=== PATIENT | male | born 1945 | race Caucasian/White ===

== ENCOUNTER 2018-01-28 17:51 | Emergency (ER) | payer OTHER ==
[2018-01-28 18:54] LABS: Absolute Lymphocytes (CBC) 1.5 K/uL (0.7-4.9); Absolute Monocytes 0.6 K/uL (0.1-1.3); Absolute Neutrophil 2.2 K/uL (1.8-8.0); Basophils % 0.6 % (0-1.3); Eosinophils % 3.1 % (0-4.4); Hematocrit 31.1 % (39.6-49.0); Lymphocytes % 33.4 % (15.3-44.8); MCH 33.3 pg (27.0-35.0); MCV 94.5 fL (80-100); MPV 8.2 fL (7.6-11.3); Monocytes % 12.6 % (3.3-12.3); RBC Red Blood Cell Count 3.29 M/uL (4.33-5.43)
[2018-01-28 18:59] LABS: Protime INR 0.97
[2018-01-28 19:15] LABS: Magnesium 2.2 mg/dL (1.8-2.4)
--- NOTE | 2018-01-28 19:21 | ER ---
Nurse's Notes [facility] Name: Michael Cruz Age: 72 yrs Sex: Male : 1945 Arrival Date: 01/28/2018 Time: 17:55 Bed 15 Private MD: Diagnosis: Person with feared health complaint in whom no diagnosis is made Presentation: 01/28 18:04 Presenting complaint: Patient states: [facility] after reading of aj 8.7 yesterday. Transition of care: patient was not received from another setting of care. Onset of symptoms was January 28, 2018. Risk Assessment: Do you want to hurt yourself or someone else? Patient reports no desire to harm self or others. Initial Sepsis Screen: Does the patient meet any 2 criteria? No. Patient's initial sepsis screen is negative. Does the patient have a suspected source of infection? No. Patient's initial sepsis screen is negative. Care prior to arrival: None. 18:04 Method Of Arrival: Ambulatory aj 18:04 Acuity: DONN 3 aj Triage Assessment: 18:06 General: Appears in no apparent distress. comfortable, Behavior is calm, cooperative, aj appropriate for age. Pain: Denies pain. Neuro: Level of Consciousness is awake, alert, obeys commands, Oriented to person, place, time, situation, Appropriate for age. Respiratory: Airway is patent Respiratory effort is even, unlabored, Respiratory pattern is regular, symmetrical. Derm: Skin is intact, is healthy with good turgor, Skin is pink, warm \T\ dry. normal. Historical: - Allergies: 18:06 No Known Allergies; aj - Home Meds: 19:04 atorvastatin 20 mg Oral tab 1 tab once daily [Active]; benztropine 1 mg Oral tab 1 tab ph 2 times per day [Active]; diclofenac sodium 50 mg oral TbEC 1 tab 2 times per day [Active]; divalproex 500 mg Oral Tb24 1 tab once daily [Active]; furosemide 40 mg Oral tab 1 tab 2 times per day [Active]; guaifenesin 100 mg/5 mL Oral liqd [Active]; hydralazine 25 mg Oral tab 1 tab 2 times per day [Active]; lisinopril 40 mg Oral tab 1 tab once daily [Active]; loratadine 10 mg Oral TbDL 1 tab once daily [Active]; metoprolol tartrate 100 mg Oral tab 1 tab 2 times per day [Active]; omeprazole 20 mg Oral cpDR 1 cap once daily [Active]; trazodone 50 mg Oral tab 1 tab nightly [Active]; spironolactone 25 mg Oral tab 1 tab once daily [Active]; - PMHx: 18:06 brain injury; Hyperlipidemia; Hypertension; Schizophrenia; aj - Immunization history:: Adult Immunizations up to date. - Social history:: Smoking status: Patient/guardian denies using tobacco. - Ebola Screening: : Patient negative for fever greater than or equal to 101.5 degrees Fahrenheit, and additional compatible Ebola Virus Disease symptoms Patient denies exposure to infectious person Patient denies travel to an Ebola-affected area in the 21 days before illness onset No symptoms or risks identified at this time. Screenin:58 Abuse screen: Denies threats or abuse. Denies injuries from another. Nutritional ph screening: On. Tuberculosis screening: No symptoms or risk factors identified. Fall Risk None identified. Assessment: 18:30 General: Appears in no apparent distress. comfortable, well groomed, Behavior is calm, ph cooperative, appropriate for age, Denies fever, feeling ill. Pain: Denies pain. Neuro: Level of Consciousness is awake, alert, obeys commands, Oriented to person, place, time, situation, Denies weakness blurred vision dizziness, headache. Cardiovascular: Denies chest pain, palpitations, shortness of breath, Capillary refill < 3 seconds Patient's skin is warm and dry. Rhythm is sinus rhythm. Respiratory: Airway is patent Respiratory effort is even, unlabored, Respiratory pattern is regular, symmetrical. GI: No signs and/or symptoms were reported involving the gastrointestinal system. Derm: Skin is intact, is healthy with good turgor, Skin is pink, warm \T\ dry. Musculoskeletal: Circulation, motion, and sensation intact. Range of motion: intact in all extremities. 19:28 Reassessment: Patient appears in no apparent distress at this time. Patient is alert, aa1 oriented x 3, equal unlabored respirations, skin warm/dry/pink. Discussed d/c \T\ f/u instructions with pt \T\ family; denies questions or concerns at this time Patient denies pain at this time. Vital Signs: 18:06 BP 136 / 67; Pulse 67; Resp 16; Temp 97.5; Pulse Ox 95% on R/A; Weight 93.44 kg; Height aj 5 ft. 10 in. (177.80 cm); 19:28 BP 133 / 70; Pulse 64; Resp 18; Pulse Ox 96% on R/A; Pain 0/10; aa1 18:06 Body Mass Index 29.56 (93.44 kg, 177.80 cm) ED Course: 17:55 Patient arrived in ED. rg4 18:05 Triage completed. aj 18:05 Kaley Herrera, RN is Primary Nurse. 18:06 Arm band placed on left wrist. Patient placed in an exam room. aj 18:08 Nichelle Jackson F[facility]-C [facility]. kb 18:08 Farhad Dye MD is Attending Physician. kb 18:40 Initial lab(s) drawn, by me, sent to lab. Inserted saline lock: 20 gauge in right ph antecubital area, using aseptic technique. Blood collected. 18:58 Patient has correct armband on for positive identification. Placed in gown. Bed in low ph position. Call light in reach. Side rails up X 1. awake overnight monitor on. Pulse ox on. NIBP on. Pillow given. 19:28 No provider procedures requiring assistance completed. IV discontinued, intact, aa1 bleeding controlled, No redness/swelling at site. Pressure dressing applied. Administered Medications: No medications were administered Outcome: 19:20 Discharge ordered by . kb 19:28 Discharged to home ambulatory, with family. aa1 19:28 Condition: good 19:28 Discharge instructions given to patient, family, Instructed on discharge instructions, follow up and referral plans. Demonstrated understanding of instructions, follow-up care. 19:30 Patient left the ED. aa1 Signatures: Nichelle Jackson FNP-C FNP-Ckb Kern, Alissa, RN RN aa1 Erika Pearson RN RN Kaley Herrera, RN PEYTON [place] rg4
--- NOTE | 2018-01-28 19:21 | EDPHYS ---
Physician Documentation [facility] Name: Michael Cruz Age: 72 yrs Sex: Male : 1945 Arrival Date: 01/28/2018 Time: 17:55 Bed 15 Private MD: ED Physician Farhad Dey HPI: 01/28 18:23 This 72 yrs old Male presents to ER via Ambulatory with complaints of kb Abnormal Lab Results. 18:34 Pt had routine lab work done at the CT this morning, was called at 1730 and told he kb needed to come to the ER for a potassium of 8.7. Onset: The symptoms/episode began/occurred today. Severity of symptoms: At their worst the symptoms were moderate in the emergency department the symptoms are unchanged. The patient has not experienced similar symptoms in the past. The patient has been recently seen by a physician:. 18:35 Pt denies any symptoms, including chest pain, palpitations, shortness of breath.. kb Historical: - Allergies: 18:06 No Known Allergies; aj - Home Meds: 19:04 atorvastatin 20 mg Oral tab 1 tab once daily [Active]; benztropine 1 mg Oral tab 1 tab ph 2 times per day [Active]; diclofenac sodium 50 mg oral TbEC 1 tab 2 times per day [Active]; divalproex 500 mg Oral Tb24 1 tab once daily [Active]; furosemide 40 mg Oral tab 1 tab 2 times per day [Active]; guaifenesin 100 mg/5 mL Oral liqd [Active]; hydralazine 25 mg Oral tab 1 tab 2 times per day [Active]; lisinopril 40 mg Oral tab 1 tab once daily [Active]; loratadine 10 mg Oral TbDL 1 tab once daily [Active]; metoprolol tartrate 100 mg Oral tab 1 tab 2 times per day [Active]; omeprazole 20 mg Oral cpDR 1 cap once daily [Active]; trazodone 50 mg Oral tab 1 tab nightly [Active]; spironolactone 25 mg Oral tab 1 tab once daily [Active]; - PMHx: 18:06 brain injury; Hyperlipidemia; Hypertension; Schizophrenia; aj - Immunization history:: Adult Immunizations up to date. - Social history:: Smoking status: Patient/guardian denies using tobacco. - Ebola Screening: : Patient negative for fever greater than or equal to 101.5 degrees Fahrenheit, and additional compatible Ebola Virus Disease symptoms Patient denies exposure to infectious person Patient denies travel to an Ebola-affected area in the 21 days before illness onset No symptoms or risks identified at this time. ROS: 18:24 Constitutional: Negative for fever, chills, and weight loss, ENT: Negative for injury, kb pain, and discharge, Neck: Negative for injury, pain, and swelling, Cardiovascular: Negative for chest pain, palpitations, and edema, Respiratory: Negative for shortness of breath, cough, wheezing, and pleuritic chest pain, Abdomen/GI: Negative for abdominal pain, nausea, vomiting, diarrhea, and constipation, Back: Negative for injury and pain, : Negative for injury, bleeding, discharge, and swelling, MS/Extremity: Negative for injury and deformity, Skin: Negative for injury, rash, and discoloration, Neuro: Negative for headache, weakness, numbness, tingling, and seizure. Exam: 18:24 Constitutional: This is a well developed, well nourished patient who is awake, alert, kb and in no acute distress. Head/Face: Normocephalic, atraumatic. ENT: Nares patent. No nasal discharge, no septal abnormalities noted. Tympanic membranes are normal and external auditory canals are clear. Oropharynx with no redness, swelling, or masses, exudates, or evidence of obstruction, uvula midline. Mucous membranes moist. Neck: Trachea midline, no thyromegaly or masses palpated, and no cervical lymphadenopathy. Supple, full range of motion without nuchal rigidity, or vertebral point tenderness. No Meningismus. Chest/axilla: Normal chest wall appearance and motion. Nontender with no deformity. No lesions are appreciated. Cardiovascular: Regular rate and rhythm with a normal S1 and S2. No gallops, murmurs, or rubs. Normal PMI, no JVD. No pulse deficits. Respiratory: Lungs have equal breath sounds bilaterally, clear to auscultation and percussion. No rales, rhonchi or wheezes noted. No increased work of breathing, no retractions or nasal flaring. Abdomen/GI: Soft, non-tender, with normal bowel sounds. No distension or tympany. No guarding or rebound. No evidence of tenderness throughout. Skin: Warm, dry with normal turgor. Normal color with no rashes, no lesions, and no evidence of cellulitis. MS/ Extremity: Pulses equal, no cyanosis. Neurovascular intact. Full, normal range of motion. Neuro: Awake and alert, GCS 15, oriented to person, place, time, and situation. Cranial nerves II-XII grossly intact. Motor strength 5/5 in all extremities. Sensory grossly intact. Cerebellar exam normal. Normal gait. Vital Signs: 18:06 BP 136 / 67; Pulse 67; Resp 16; Temp 97.5; Pulse Ox 95% on R/A; Weight 93.44 kg; Height aj 5 ft. 10 in. (177.80 cm); 19:28 BP 133 / 70; Pulse 64; Resp 18; Pulse Ox 96% on R/A; Pain 0/10; aa1 18:06 Body Mass Index 29.56 (93.44 kg, 177.80 cm) aj MDM: 18:15 Patient medically screened. kb 18:24 Data reviewed: vital signs, nurses notes. Data interpreted: Pulse oximetry: on room air kb is 95 %. Interpretation: normal. 19:19 Counseling: I had a detailed discussion with the patient and/or guardian regarding: the kb historical points, exam findings, and any diagnostic results supporting the discharge/admit diagnosis, lab results, the need for outpatient follow up, a family practitioner, to return to the emergency department if symptoms worsen or persist or if there are any questions or concerns that arise at home. 01/28 18:14 Order name: Basic Metabolic Panel; Complete Time: 19:17 kb 01/28 18:14 Order name: CBC with Diff; Complete Time: 19:10 kb 01/28 18:14 Order name: Ckmb; Complete Time: 19:17 kb 01/28 18:14 Order name: CPK; Complete Time: 19:17 kb 01/28 18:14 Order name: Magnesium; Complete Time: 19:17 kb 01/28 18:14 Order name: NT PRO-BNP; Complete Time: 19:17 kb 01/28 18:14 Order name: PT-INR; Complete Time: 19:10 kb 01/28 18:14 Order name: Ptt, Activated; Complete Time: 19:10 kb 01/28 18:14 Order name: Troponin (emerg Dept Use Only); Complete Time: 19:14 kb 01/28 18:14 Order name: EKG; Complete Time: 18:15 kb 01/28 18:14 Order name: Cardiac monitoring; Complete Time: 19:05 kb 01/28 18:14 Order name: EKG - Nurse/Tech; Complete Time: 19:05 kb 01/28 18:14 Order name: IV Saline Lock; Complete Time: 19:05 kb 01/28 18:14 Order name: Labs collected and sent; Complete Time: 19:05 kb 01/28 18:14 Order name: O2 Per Protocol; Complete Time: 19:05 kb 01/28 18:14 Order name: O2 Sat Monitoring; Complete Time: 19:05 kb Administered Medications: No medications were administered Disposition: 01/28/18 19:20 Discharged to Home. Impression: Person with feared health complaint in whom no diagnosis is made. - Condition is Stable. - Medication Reconciliation Form, Thank You Letter, Antibiotic Education, Prescription Opioid Use form. - Follow up: Emergency Department; When: As needed; Reason: Worsening of condition. Follow up: Private Physician; When: 2 - 3 days; Reason: Recheck today's complaints, Continuance of care, Re-evaluation by your physician. Addendum: 02/12/2018 10:54 Co-signature as Attending Physician, Farhad Dye MD I agree with the assessment and k dr plan of care. Signatures: Dispatcher [employer] EDMS Nichelle Jackson, GAS APPLIANCE SERVICER-C GAS APPLIANCE SERVICER-Ckb Heaven Lau RN RN aa1 Erika Pearson RN RN aj Rittger, Kevin, MD MD [facility] Kaley Herrera RN RN ph Corrections: (The following items were deleted from the chart) 01/28 18:34 18:24 Constitutional: Negative for fever, chills, and weight loss, ENT: Negative for kb injury, pain, and discharge, Neck: Negative for injury, pain, and swelling, Cardiovascular: Negative for chest pain, palpitations, and edema, Respiratory: Negative for shortness of breath, cough, wheezing, and pleuritic chest pain, Abdomen/GI: Negative for abdominal pain, nausea, vomiting, diarrhea, and constipation, MS/Extremity: Negative for injury and deformity, Skin: Negative for injury, rash, and discoloration, Neuro: Negative for headache, weakness, numbness, tingling, and seizure, kb 19:30 19:20 01/28/2018 19:20 Discharged to Home. Impression: Person with feared health aa1 complaint in whom no diagnosis is made. Condition is Stable. Forms are Medication Reconciliation Form, Thank You Letter, Antibiotic Education, Prescription Opioid Use. Follow up: Emergency Department; When: As needed; Reason: Worsening of condition. Follow up: Private Physician; When: 2 - 3 days; Reason: Recheck today's complaints, Continuance of care, Re-evaluation by your physician. kb
--- NOTE | 2018-01-29 09:04 | EKG ---
Test Date: 2018-01-28 Test Time: 18:19:38 Side Splitter: ROLAND MEASUREMENT RESULTS: Intervals: Rate: 63 NE: 212 QRSD: 144 QT: 458 QTc: 468 [place]: P: 40 NE: 212 QRS: -51 T: 27 INTERPRETIVE STATEMENTS: Sinus rhythm with 1st degree AV block Right bundle branch block Left anterior fascicular block Bifascicular block Abnormal ECG No previous ECG available for comparison Electronically Signed On 01-29-18 09:03:17 CDT by Harjit Ayala
== END 2018-01-28 19:30 | disposition home or self-care (01) ==
LOC: ER 17:51
DX: Z71.1 Person with feared health complaint in whom no diagnosis is made (principal); I10 Essential (primary) hypertension; E78.5 Hyperlipidemia, unspecified; F20.9 Schizophrenia, unspecified
CPT/HCPCS: 36415; 80048; 82550; 82553; 83735; 83880; 84484; 85025; 85610; 85730; 93005; 99284

== ENCOUNTER 2024-01-17 17:29 | Emergency (ER) | payer OTHER ==
--- OUTSIDE RECORDS SUMMARY | 2024-01-17 17:32 | XMS REPORT | Continuity of Care Document ---
Author Name Unknown Address [address] [place] [address] thconnect Address [address] [place] [address] Care Team Providers Care Mobile Practice Lead Name Role Phone Unavailable Unavailable Unavailable Encounters Start Date/Time End Date/Time Encounter Type Admission Type Attending Clinicians Care Facility Care Department Encounter ID Source 2023-12-03 07:24:00 Outpatient [facility] [id number] [facility] 2022-07-08 11:27:01 Outpatient [facility] [id number] [facility]
[2024-01-17] MEDS ORDERED: KETOROLAC 30 MG/ML INJ ONE (18:25)
[2024-01-17] MEDS ORDERED: ONDANSETRON 4 MG/2 ML VIAL ONE (18:27)
[2024-01-17] MEDS ORDERED: MORPHINE 4 MG/ML SYR ONE (18:28)
[2024-01-17 18:55] LABS: Absolute Lymphocytes (CBC) 0.7 K/uL (0.7-4.9); Absolute Monocytes 1.1 K/uL (0.1-1.3); Basophils % 0.3 % (0-1.3); Hematocrit 28.9 % (39.6-49.0); Hemoglobin 9.8 g/dL (13.6-17.9); Lymphocytes % 8.5 % (15.3-44.8); MCH 31.2 pg (27.0-35.0); MCV 91.8 fL (80-100); Monocytes % 14.4 % (3.3-12.3); Neutrophils % 76.8 % (41.7-73.7); Nucleated Red Blood Cells % 0.1 % (0-0); Platelets 161 thou/uL (152-406); RBC Red Blood Cell Count 3.15 M/uL (4.33-5.43); Red Cell Distribution Width 15.6 % (12.1-15.2)
[2024-01-17 19:13] LABS: Anion Gap 9.8 mEq/L (5.0-15.0); Potassium 3.8 mEq/L (3.5-5.1); Troponin High Sensitivity 21.4 pg/mL (<58.9)
--- NOTE | 2024-01-17 19:22 | RAD REPORT ---
EXAM DESCRIPTION: CT - [id number] - 01/17/2024 7:13 pm CLINICAL HISTORY: Trauma, head and neck injury. hypertensive, headache, neck pain COMPARISON: <Comparisons> TECHNIQUE: Axial 5 mm thick images of the head were obtained. Axial 2 mm thick images of the cervical spine were obtained with sagittal and coronal reconstruction images generated and reviewed. All CT scans are performed using dose optimization technique as appropriate and may include automated exposure control or mA/KV adjustment according to patient size. FINDINGS: CT HEAD WITHOUT CONTRAST: No acute hemorrhage, hydrocephalus or extra-axial collection is identified.No areas of brain edema or midline shift. The paranasal sinuses and mastoids are clear.The calvarium is intact. CT CERVICAL SPINE WITHOUT CONTRAST: No fracture or subluxation.Moderate lower cervical degenerative changes are present.No prevertebral s oft tissues swelling is identified. IMPRESSION: No acute intracranial or cervical spine findings.
[2024-01-17] MEDS ORDERED: HYDRALAZINE HCL 20 MG/ML VIAL ONE (19:37)
[2024-01-17] MEDS ORDERED: LIDOCAINE 4% PATCH ONE (19:38)
--- NOTE | 2024-01-17 19:49 | ER ---
Nurse's Notes [facility] Name: Michael Cruz Age: 78 yrs Sex: Male : 1945 Arrival Date: 01/17/2024 Time: 17:29 Bed 6 Private MD: Diagnosis: Strain of muscle, fascia and tendon at neck level, initial encounter Presentation: 01/16 18:00 Chief complaint: Patient states: neck pain and occipital pain that started yesterday. kc6 sister states she feels like his right jaw and ear is swollen. Coronavirus screen: At this time, the client does not indicate any symptoms associated with coronavirus-19. Ebola Screen: No symptoms or risks identified at this time. Initial Sepsis Screen: Does the patient meet any 2 criteria? No. Patient's initial sepsis screen is negative. Does the patient have a suspected source of infection? No. Patient's initial sepsis screen is negative. Risk Assessment: Do you want to hurt yourself or someone else? Patient reports no desire to harm self or others. Onset of symptoms was January 17, 2024. 18:00 Method Of Arrival: Wheelchair kc6 18:00 Acuity: DONN 2 kc6 Historical: - Allergies: 18:01 No Known Allergies; kc6 - PMHx: 18:01 Schizophrenia; Hypertension; Bipolar disorder; brain injury; Hyperlipidemia; Myocardial kc6 infarction; - PSHx: 18:01 pacemaker; Coronary artery bypass graft; kc6 - Immunization history:: Adult Immunizations up to date. - Infectious Disease History:: Denies. - Social history:: Smoking status: Patient/guardian denies using tobacco, the patient reports quitting approximately 30 years ago. Screenin:44 [facility] ED Fall Risk Assessment (Adult) History of falling in the last 3 months, kc6 including since admission No falls in past 3 months (0 pts) Confusion or Disorientation No (0 pts) Intoxicated or Sedated No (0 pts) Impaired Gait No (0 pts) Mobility Assist Device Used No (0 pt) Altered Elimination No (0 pt) Score/Fall Risk Level 0 - 2 = Low Risk. Abuse screen: Denies threats or abuse. Denies injuries from another. Nutritional screening: No deficits noted. Tuberculosis screening: No symptoms or risk factors identified. Assessment: 18:45 General: Appears in no apparent distress. comfortable, well groomed, well developed, kc6 Behavior is calm, cooperative, appropriate for age. Pain: Complains of pain in occiput and neck Pain does not radiate. Pain currently is 10 out of 10 on a pain scale. Neuro: Level of Consciousness is awake, alert, obeys commands, Oriented to person, place, time, situation, Appropriate for age. Cardiovascular: Capillary refill < 3 seconds. Respiratory: Airway is patent Trachea midline Respiratory effort is even, unlabored, Respiratory pattern is regular, symmetrical. GI: No signs and/or symptoms were reported involving the gastrointestinal system. : No signs and/or symptoms were reported regarding the genitourinary system. EENT: No signs and/or symptoms were reported regarding the EENT system. Derm: No signs and/or symptoms reported regarding the dermatologic system. Skin is intact, is healthy with good turgor, Skin is pink, warm \T\ dry. Musculoskeletal: No signs and/or symptoms reported regarding the musculoskeletal system. Circulation, motion, and sensation intact. Capillary refill < 3 seconds, Range of motion: intact in all extremities. 19:44 Reassessment: Patient states feeling better. [facility] Vital Signs: 18:00 BP 227 / 97; Pulse 91; Resp 16 S; Pulse Ox 98% on R/A; Weight 84.37 kg (R); Height 5 kc6 ft. 11 in. (R); Pain 10/10; 18:44 BP 206 / 89; Pulse 92; Resp 20 S; Pulse Ox 99% on R/A; kc6 19:44 BP 170 / 77; Pulse 85; Resp 14; Pulse Ox 100% ; Pain 0/10; 12 19:56 BP 160 / 82; Pulse 65; Resp 14; Pulse Ox 100% ; Pain 0/10; 12 18:00 Body Mass Index 25.94 (84.37 kg, 180.34 cm) 6 18:00 Pain Scale: Adult [facility] 19:44 Pain Scale: Adult [facility] 19:56 Pain Scale: Adult [facility] ED Course: 17:36 Patient arrived in ED. ra3 17:41 Bibi Mercado PA-C is PHCP. sb4 17:41 Venu Cruz MD is Attending Physician. sb4 18:01 Triage completed. kc6 18:01 Arm band placed on. kc6 18:43 Rizvi, Miroslava, RN is Primary Nurse. [facility] 18:44 Patient has correct armband on for positive identification. Bed in low position. Call kc6 light in reach. Side rails up X2. Adult w/ patient. coffee shop aide on. Pulse ox on. NIBP on. Pillow given. Head of bed elevated. 18:44 Inserted saline lock: 20 gauge in right antecubital area, using aseptic technique. kc6 Blood collected. Flushed with 10 mL NS. 19:14 Head C Spine MPR Wo Con CT In Process Unspecified. EDMS 19:57 IV discontinued, intact, bleeding controlled, No redness/swelling at site. Pressure jm12 dressing applied. Administered Medications: 18:26 Not Given (Physician Discretion): diazepam5 mg IVP once sb4 18:43 Drug: Ketorolac IVP 15 mg IVP once Route: IVP; Site: right antecubital; kc6 18:43 Drug: morphine IVP or IV 4 mg IVP once over 4 mins Route: IVP; Infused Over: 4 mins; 6 Site: right antecubital; 18:44 Drug: Ondansetron IVP 4 mg IVP once; over 2 minutes Route: IVP; Site: right antecubital;kc6 19:43 Drug: hydrALAZINE IVP 10 mg IVP once Route: IVP; Site: right antecubital; jm12 19:43 Not Given (Patient Refused): lidodermpatch 5 % (700 mg/patch) 1 patches Topical once; jm12 leave on for 12 hours; cover most painful area; may cut into smaller pieces Outcome: 19:49 Discharge ordered by . 4 19:58 Discharged to home jm 19:58 Condition: stable 19:58 Discharge instructions given to patient, family, Instructed on discharge instructions, follow up and referral plans. medication usage, Demonstrated understanding of instructions, follow-up care, medications, Prescriptions given X 2, 19:58 Patient left the ED. jm12 Signatures: Dispatcher [employer] EDMS Miroslava Rizvi, PEYTON RN kc6 Bibi Mercado, PA-C PADanielC [email or web address] Yamini Peacock ra3 Heydi Chau RN RN jm12 Corrections: (The following items were deleted from the chart) 19:43 19:43 Lidoderm Topical Patch 5 % (700 mg/patch) 1 patches Topical in right thigh jm12 jm12
--- NOTE | 2024-01-17 19:49 | EDPHYS ---
Physician Documentation [facility] Name: Michael Cruz Age: 78 yrs Sex: Male : 1945 Arrival Date: 01/17/2024 Time: 17:29 Bed 6 Private MD: ED Physician Venu Cruz HPI: 01/16 18:11 This 78 yrs old Male presents to ER via Wheelchair with complaints of Neck Pain, >24Hrs sb4 Old. 18:11 The patient or guardian complains of pain, that is acute. The symptoms are located on sb4 the right posterior aspect of neck. Onset: The symptoms/episode began/occurred 2 day(s) ago. Context: The neck injury/problem resulted from unknown. Associated signs and symptoms: The patient has no apparent associated signs or symptoms. The pain does not radiate. The patient has not experienced similar symptoms in the past. Historical: - Allergies: 18:01 No Known Allergies; kc6 - PMHx: 18:01 Schizophrenia; Hypertension; Bipolar disorder; brain injury; Hyperlipidemia; Myocardial kc6 infarction; - PSHx: 18:01 pacemaker; Coronary artery bypass graft; kc6 - Immunization history:: Adult Immunizations up to date. - Infectious Disease History:: Denies. - Social history:: Smoking status: Patient/guardian denies using tobacco, the patient reports quitting approximately 30 years ago. ROS: 18:13 Constitutional: Negative for fever, chills, and weight loss, sb4 18:13 Neck: Positive for pain with movement, pain at rest, tenderness, 18:13 All other systems are negative, Exam: 18:13 Head/Face: Normocephalic, atraumatic. Eyes: Extra-ocular motions intact. Periorbital sb4 areas with no swelling, redness, or edema. ENT: Mucous membranes moist. Cardiovascular: Regular rate and rhythm with a normal S1 and S2. Respiratory: Lungs have equal breath sounds bilaterally, clear to auscultation and percussion. No rales, rhonchi or wheezes noted. No increased work of breathing, no retractions or nasal flaring. Abdomen/GI: Soft, non-tender, no distension. 18:13 Constitutional: The patient appears alert, awake, uncomfortable, 18:13 Neck: External neck: tenderness, that is moderate, of the occiput and right posterior aspect of neck, C-spine: appears grossly normal, Thyroid: appears normal, Trachea: is midline with no obvious abnormalities, ROM/movement: pain, Vital Signs: 18:00 BP 227 / 97; Pulse 91; Resp 16 S; Pulse Ox 98% on R/A; Weight 84.37 kg (R); Height 5 kc6 ft. 11 in. (R); Pain 10/10; 18:44 BP 206 / 89; Pulse 92; Resp 20 S; Pulse Ox 99% on R/A; kc6 19:44 BP 170 / 77; Pulse 85; Resp 14; Pulse Ox 100% ; Pain 0/10; jm12 19:56 BP 160 / 82; Pulse 65; Resp 14; Pulse Ox 100% ; Pain 0/10; [facility] 18:00 Body Mass Index 25.94 (84.37 kg, 180.34 cm) [facility] 18:00 Pain Scale: Adult kc 19:44 Pain Scale: Adult [facility] 19:56 Pain Scale: Adult [facility] MDM: 17:58 Patient medically screened. sb4 19:48 Data reviewed: vital signs, nurses notes, lab test result(s), radiologic studies, and sb4 as a result, I will discharge patient. Counseling: I had a detailed discussion with the patient and/or guardian regarding the historical points, exam findings, and any diagnostic results supporting the discharge/admit diagnosis, lab results, radiology results, to return to the emergency department if symptoms worsen or persist or if there are any questions or concerns that arise at home. 01/16 18:10 Order name: Basic Metabolic Panel; Complete Time: 19:14 sb4 01/16 18:10 Order name: CBC with Diff; Complete Time: 18:58 sb4 01/16 18:10 Order name: Troponin HS; Complete Time: 19:14 sb4 01/16 18:09 Order name: Head C Spine MPR Wo Con CT; Complete Time: 19:23 sb4 01/16 18:10 Order name: Cardiac monitoring; Complete Time: 18:43 sb4 01/16 18:10 Order name: IV Saline Lock; Complete Time: 18:43 sb4 01/16 18:10 Order name: Labs collected and sent; Complete Time: 18:43 sb4 01/16 18:10 Order name: O2 Per Protocol; Complete Time: 18:43 sb4 01/16 18:10 Order name: O2 Sat Monitoring; Complete Time: 18:43 sb4 Administered Medications: 18:26 Not Given (Physician Discretion): diazepam5 mg IVP once sb4 18:43 Drug: Ketorolac IVP 15 mg IVP once Route: IVP; Site: right antecubital; kc6 18:43 Drug: morphine IVP or IV 4 mg IVP once over 4 mins Route: IVP; Infused Over: 4 mins; kc6 Site: right antecubital; 18:44 Drug: Ondansetron IVP 4 mg IVP once; over 2 minutes Route: IVP; Site: right antecubital;kc6 19:43 Drug: hydrALAZINE IVP 10 mg IVP once Route: IVP; Site: right antecubital; jm12 19:43 Not Given (Patient Refused): lidodermpatch 5 % (700 mg/patch) 1 patches Topical once; jm12 leave on for 12 hours; cover most painful area; may cut into smaller pieces Disposition: 20:16 Co-signature as Attending Physician, Venu Cruz MD I reviewed the patient's care rt provided by the Advanced Practice Provider and agree with the diagnosis and treatment plan. Disposition Summary: 01/17/24 19:49 Discharge Ordered Notes: Location: Home sb4 Problem: new sb4 Symptoms: are resolved sb4 Condition: Stable sb4 Diagnosis - Strain of muscle, fascia and tendon at neck level, initial encounter sb4 Followup: sb4 - With: Private Physician - When: As needed - Reason: Recheck today's complaints, Re-evaluation by your physician Discharge Instructions: - Discharge Summary Sheet sb4 - Cervical Sprain, [id number] sb4 Forms: - Prescription Opioid Use sb4 - Patient Portal Instructions sb4 - Leadership Thank You Letter sb4 Prescriptions: - Tramadol 50 mg Oral Tablet - take 1 tablet ORAL route every 8 hours as needed; 12 tablet; Refills: 0, sb4 Product Selection Permitted - Prednisone 20 mg Oral Tablet - take 2 tablets ORAL route once daily for 5 days; 10 tablet; Refills: 0, Product sb4 Selection Permitted Signatures: Dispatcher [employer] Miroslava Sanches RN RN kc6 Bibi Mercado PA-C PA-C sb4 Venu Cruz MD MD rt Heydi Chau RN RN jm12 Corrections: (The following items were deleted from the chart) 18:10 18:10 BASIC METABOLIC PANEL+C.LAB.BRZ ordered. EDMS EDMS 18:10 18:10 CBC+H.LAB.BRZ ordered. EDMS EDMS 18:10 18:10 Troponin High Sensitivity+C.LAB.BRZ ordered. EDMS EDMS
[2024-01-17 22:15] VITALS: O2SAT 100
[2024-01-17 22:16] VITALS: BP 160/82
== END 2024-01-17 19:58 | disposition home or self-care (01) ==
LOC: ER 17:29
DX: S16.1XXA Strain of muscle, fascia and tendon at neck level, initial encounter (principal)
CPT/HCPCS: 85025; 80048; 36415; 84484; 70450; 72125; 96375; 96374; 99285; J2001; J0360; J2405

== ENCOUNTER 2025-02-04 15:32 | Emergency (ER) | payer OTHER ==
--- OUTSIDE RECORDS SUMMARY | 2025-02-04 15:35 | XMS REPORT | Continuity of Care Document ---
Author Name Unknown Address [address] [place] [id number] [facility] Address [address] [place] [address] [address] [place] [address] Care Team Providers Care Aircraft Cleaning Supervisor Name Role Phone Unavailable Unavailable Unavailable Encounters Start Date/Time End Date/Time Encounter Type Admission Type Attending Clinicians Care Facility Care Department Encounter ID Source 2024-03-04 07:13:00 [facility] [id number] [facility] 2023-12-03 07:24:00 [facility] [id number] [facility] 2022-07-08 11:27:01 [facility] [id number] [facility]
[2025-02-04] MEDS ORDERED: HYDROCODONE/APAP 5/325 MG TAB ONE (16:08)
[2025-02-04] MEDS ORDERED: KETOROLAC 30 MG/ML INJ ONE (16:08)
--- NOTE | 2025-02-04 17:31 | RAD REPORT ---
EXAMINATION: Femur Left Wo Con CLINICAL INDICATION: Male, 79 years old.Left Hip to Mid Thigh Please TECHNIQUE: CT above extremity was performed without contrast. Reformats were performed. One or more o f the following dose reduction techniques were used: Automated exposure control, adjustment of the mA and/or kV according to patient size, and/or iterative reconstruction. Unless otherwise specified, incidental findings do not require dedicated imaging follow-up. [id number]. COMPARISON: No prior exams FINDINGS: No left femur fracture identified. Severe peripheral vascular calcifications. No knee fracture seen. No acute soft tissue abnormality. Small fat-containing left inguinal hernia. Prostatomegaly. IMPRESSION: No acute osseous abnormality involving the left femur.
--- NOTE | 2025-02-04 17:51 | EDPHYS ---
Physician Documentation [facility] Name: Michael Cruz Age: 79 yrs Sex: Male : 1945 Arrival Date: 02/04/2025 Time: 15:32 Bed 17 Private MD: ED Physician Ayaz Osorio HPI: 02/04 18:45 This 79 yrs old Male presents to ER via Wheelchair with complaints of Leg dr5 Pain, Hip Pain. 18:45 The patient presents with pain, that is chronic. The complaints affect the left hip. dr5 Onset: The symptoms/episode began/occurred 2 day(s) ago. Patient is a 79-year-old male with history of bipolar disorder, hyperlipidemia, hypertension, AL, schizophrenia coming in with left hip pain that started 2 days ago when he was stomping on sticks to break them. Patient saw Brenden Lim with orthopedics today with negative x-ray. Brenden Lim sent patient to ER for CT scan of left hip.. Historical: - Allergies: 15:47 No Known Allergies; me1 - PMHx: 15:47 Bipolar disorder; brain injury; Hyperlipidemia; Hypertension; Myocardial infarction; me1 Schizophrenia; - PSHx: 15:47 Coronary artery bypass graft; pacemaker; ankle surgery (Unknown); me1 - Immunization history:: Adult Immunizations up to date. - Infectious Disease History:: Denies. - Social history:: Smoking status: Patient denies any tobacco usage or history of. ROS: 18:45 Constitutional: as per hpi dr5 Exam: 18:45 Constitutional: This is a well developed, well nourished patient who is awake, alert, dr5 and in no acute distress. Head/Face: Normocephalic, atraumatic. Eyes: Pupils equal round and reactive to light, extra-ocular motions intact. Lids and lashes normal. Conjunctiva and sclera are non-icteric and not injected. Cornea within normal limits. Periorbital areas with no swelling, redness, or edema. Neck: Trachea midline, no thyromegaly or masses palpated, and no cervical lymphadenopathy. Supple, full range of motion without nuchal rigidity, or vertebral point tenderness. No Meningismus. Chest/axilla: Normal chest wall appearance and motion. Nontender with no deformity. No lesions are appreciated. Cardiovascular: Regular rate and rhythm with a normal S1 and S2. Normal PMI, no JVD. No pulse deficits. Respiratory: Lungs have equal breath sounds bilaterally, clear to auscultation. No rales, rhonchi or wheezes noted. No increased work of breathing, no retractions or nasal flaring. Back: No spinal tenderness. No costovertebral tenderness. Full range of motion. Skin: Warm, dry with normal turgor. Normal color with no rashes, no lesions, and no evidence of cellulitis. Neuro: Awake and alert, GCS 15, oriented to person, place, time, and situation. Cranial nerves II-XII grossly intact. Motor strength 5/5 in all extremities. Sensory grossly intact. Cerebellar exam normal. Normal gait. 18:45 Musculoskeletal/extremity: Extremities: grossly normal except: noted in the left hip: pain, tenderness, ROM: no acute changes, intact in all extremities, Circulation is intact in all extremities. Sensation intact. Vital Signs: 15:41 BP 177 / 94; Pulse 85; Resp 18; Temp 98.3; Pulse Ox 94% ; Weight 84.37 kg; Height 5 ft. me1 11 in. ; 18:04 BP 144 / 78; Pulse 77; Resp 17; Temp 98.9; Pulse Ox 95% ; Pain 7/10; ll1 15:41 Body Mass Index 25.94 (84.37 kg, 180.34 cm) me1 18:04 Pain Scale: Adult ll1 MDM: 15:34 Medical Screening Exam initiated dr5 18:45 Differential diagnosis: open fracture, closed fracture, contusion, abrasion. Data dr5 reviewed: vital signs, nurses notes, radiologic studies, CT scan. Consideration of Admission/Observation Escalation of care including admission/observation considered. Admission considered patient found to have femur fracture. I considered the following discharge prescriptions or medication management in the emergency department I discussed and recommended Over The Counter medications, Medications were administered in the Emergency Department. See MAR. Historians other than the Patient: Family Member: Sister. Care significantly affected by the following chronic conditions: Bipolar disorder, hyperlipidemia, hypertension, AL, schizophrenia. Care significantly affected by the following Social Determinants of Health: Poor access to healthcare and/or lack of insurance, Poor access to transportation, Problems related to employment. Counseling: I had a detailed discussion with the patient and/or guardian regarding the historical points, exam findings, and any diagnostic results supporting the discharge/admit diagnosis, the presence of at least one elevated blood pressure reading (>120/80) during this emergency department visit, radiology results, the need for outpatient follow up, for definitive care, a family practitioner, a orthopedic surgeon, to return to the emergency department if symptoms worsen or persist or if there are any questions or concerns that arise at home. Medication response: Toradol markedly relieved the patient's pain, [place]. Response to treatment: the patient's symptoms have markedly improved after treatment. Special discussion: I have referred the patient to see his PCP for further evaluation of high blood pressure. I discussed with the patient/guardian in detail that at this point there is no indication for admission to the hospital. It is understood, however, that if the symptoms persist or worsen the patient needs to return immediately for re-evaluation. Based on the history and exam findings, there is no indication for further emergent testing or inpatient evaluation. I discussed with the patient/guardian the need to see the orthopedic surgeon for further evaluation of the symptoms. ED course: Patient found to have peripheral vascular disease with calcifications as well as enlarged prostate. Sister reports that she thought he had problems with the prostate. Will prescribe Flomax to help with urination. CT scan printed and given to patient to take back to orthopedics. Will give pain medication to help with pain of left hip. All question answered. Strict ER precautions given. Sister is agreeable to plan.. 02/04 16:10 Order name: Femur Left Wo Con; Complete Time: 17:39 EDMS Administered Medications: 16:23 Drug: Ketorolac IM 30 mg IM once {Note: pain 10/10 RASS 0.} Route: IM; Site: right ll1 vastus lateralis; 18:05 Follow up: Response: No adverse reaction; Pain is decreased; RASS: Alert and Calm (0) ll1 16:23 Drug: HYDROcodone-acetaminophen PO 5 mg-325 mg 2 tabs PO once {Note: pain 10/10 RASS ll1 0.} Route: PO; 18:05 Follow up: Response: No adverse reaction; Pain is decreased; RASS: Alert and Calm (0) ll1 Disposition Summary: 02/04/25 17:50 Discharge Ordered Notes: Location: Home dr5 Condition: Stable dr5 Diagnosis - Peripheral vascular disease, unspecified dr5 - Enlarged prostate with lower urinary tract symptoms dr5 Followup: dr5 - With: Emergency Department - When: As needed - Reason: Worsening of condition Followup: dr5 - With: Private Physician - When: 1 - 2 days - Reason: Recheck today's complaints, Continuance of care, Re-evaluation by your physician Discharge Instructions: - Discharge Summary Sheet dr5 - Peripheral Vascular Disease, [id number] dr5 - Benign Prostatic Hyperplasia dr5 Forms: - Medication Reconciliation Form dr5 - Prescription Opioid Use dr5 - Patient Portal Instructions dr5 - Leadership Thank You Letter dr5 Prescriptions: - Flomax 0.4 mg Oral capsule - take 1 capsule ORAL route daily; 30 capsule; Refills: 0, Product Selection dr5 Permitted - Tramadol 50 mg Oral Tablet - take 1 tablet ORAL route every 8 hours as needed; 12 tablet; Refills: 0, dr5 Product Selection Permitted Signatures: Dispatcher [employer] Simeon Mackay RN RN ll1 Diane Lilly RN RN me1 Salazar Mary, LEARNING DISABILITIES RESOURCE TEACHER-C LEARNING DISABILITIES RESOURCE TEACHER-Cdr5 Corrections: (The following items were deleted from the chart) 16:10 15:56 Pelvis Wo Cont+CT.RAD.BRZ ordered. EDMT ED
--- NOTE | 2025-02-04 17:51 | ER ---
Nurse's Notes [facility] Name: Michael Cruz Age: 79 yrs Sex: Male : 1945 Arrival Date: 02/04/2025 Time: 15:32 Bed 17 Private MD: Diagnosis: Peripheral vascular disease, unspecified;Enlarged prostate with lower urinary tract symptoms Presentation: 02/04 15:41 Chief complaint: Spouse and/or significant other states: pain to left hip and leg me1 starting morning. Friday patient reports he was breaking branches up with his foot. Patient is confused and doesn't know of any injury while breaking them. Sister states it has to be when he hurt himself. Pain is tolerable at rest. Pain is 10/10 when moving left leg. Coronavirus screen: Vaccine status: Patient reports receiving the 2nd dose of the covid vaccine. Ebola Screen: No symptoms or risks identified at this time. Initial Sepsis Screen: Does the patient meet any 2 criteria? No. Patient's initial sepsis screen is negative. Does the patient have a suspected source of infection? No. Patient's initial sepsis screen is negative. Risk Assessment: Do you want to hurt yourself or someone else? Patient reports no desire to harm self or others. Onset of symptoms was February 03, 2025. 15:41 Method Of Arrival: Wheelchair me1 15:41 Acuity: DONN 3 me1 Historical: - Allergies: 15:47 No Known Allergies; me1 - PMHx: 15:47 Bipolar disorder; brain injury; Hyperlipidemia; Hypertension; Myocardial infarction; me1 Schizophrenia; - PSHx: 15:47 Coronary artery bypass graft; pacemaker; ankle surgery (Unknown); me1 - Immunization history:: Adult Immunizations up to date. - Infectious Disease History:: Denies. - Social history:: Smoking status: Patient denies any tobacco usage or history of. Screenin:26 [facility] ED Fall Risk Assessment (Adult) History of falling in the last 3 months, ll1 including since admission No falls in past 3 months (0 pts) Confusion or Disorientation No (0 pts) Intoxicated or Sedated No (0 pts) Impaired Gait Yes (1 pt) Mobility Assist Device Used Yes (1 pt) Altered Elimination Yes (1 pt) Score/Fall Risk Level 3 or more points = High Risk Oriented to surroundings, Hourly rounding (assess needs \T\ fall precautionary measures) done. Abuse screen: Denies threats or abuse. Nutritional screening: No deficits noted. Tuberculosis screening: No symptoms or risk factors identified. Assessment: 16:10 Reassessment: Patient and/or family updated on plan of care and expected duration. Pain ll1 level reassessed. 16:23 General: Appears uncomfortable, Behavior is calm, cooperative, appropriate for age. ll1 Pain: Complains of pain in left leg Quality of pain is described as aching. Musculoskeletal: Circulation, motion, and sensation intact. Capillary refill < 3 seconds, in left toes. Reports pain in left leg. 17:26 Reassessment: Patient and/or family updated on plan of care and expected duration. Pain ll1 level reassessed. back from CT scan. 18:04 Reassessment: No changes from previously documented assessment. Patient and/or family ll1 updated on plan of care and expected duration. Pain level reassessed. Patient is alert, oriented x 3, equal unlabored respirations, skin warm/dry/pink. Vital Signs: 15:41 BP 177 / 94; Pulse 85; Resp 18; Temp 98.3; Pulse Ox 94% ; Weight 84.37 kg; Height 5 ft. me1 11 in. ; 18:04 BP 144 / 78; Pulse 77; Resp 17; Temp 98.9; Pulse Ox 95% ; Pain 7/10; ll1 15:41 Body Mass Index 25.94 (84.37 kg, 180.34 cm) me1 18:04 Pain Scale: Adult ll1 ED Course: 15:34 Patient arrived in ED. mr 15:34 Salazar Mary FNP-C is PHCP. dr5 15:34 Ayaz Osorio MD is Attending Physician. dr5 15:47 Triage completed. me1 15:47 Arm band placed on Patient placed in waiting room. me1 16:10 Patient placed in an exam room, on a stretcher. ll1 16:10 Patient has correct armband on for positive identification. Bed in low position. ll1 Provided Education on: ER procedures and process. 16:13 Simeon Mcghee RN is Primary Nurse. ll1 17:18 Femur Left Wo Con In Process Unspecified. EDMS 18:05 No provider procedures requiring assistance completed. Patient did not have IV access ll1 during this emergency room visit. Administered Medications: 16:23 Drug: Ketorolac IM 30 mg IM once {Note: pain 10/10 RASS 0.} Route: IM; Site: right ll1 vastus lateralis; 18:05 Follow up: Response: No adverse reaction; Pain is decreased; RASS: Alert and Calm (0) [facility] 16:23 Drug: HYDROcodone-acetaminophen PO 5 mg-325 mg 2 tabs PO once {Note: pain 10/10 RASS ll1 0.} Route: PO; 18:05 Follow up: Response: No adverse reaction; Pain is decreased; RASS: Alert and Calm (0) [facility] Medication: 17:27 VIS not applicable for this client. 1 Outcome: 17:50 Discharge ordered by . dr5 18:05 Discharged to home via wheelchair, 1 18:05 Condition: stable 18:05 Discharge instructions given to patient, family, Instructed on discharge instructions, follow up and referral plans. medication usage, Demonstrated understanding of instructions, follow-up care, medications, Prescriptions given X 2, 18:06 Patient left the ED. [facility] Signatures: Dispatcher [employer] EDHI Yahaira Loo, Reg Reg mr Simeon Mcghee, RN RN ll1 Diane Lilly RN RN md1 Salazar Mary, COGNOS-C COGNOS-Cdr5
[2025-02-04 18:53] VITALS: BP 144/78; TEMP 98.9; O2SAT 95
== END 2025-02-04 18:06 | disposition home or self-care (01) ==
LOC: ER 15:32
DX: I73.9 Peripheral vascular disease, unspecified (principal); N40.1 Benign prostatic hyperplasia with lower urinary tract symptoms; Z95.0 Presence of cardiac pacemaker; Z95.1 Presence of aortocoronary bypass graft
CPT/HCPCS: 73700; 96372; 99284